=== PATIENT | female | born 1980 | race American Indian/Alaskan Native ===

== ENCOUNTER 2016-06-07 08:25 | Outpatient (CLI) | payer OTHER ==
--- NOTE | 2016-06-07 10:13 | History and Physical Report ---
History of Present Illness Date of examination: 06/07/16 Chief complaint: breast lesion
--- NOTE | 2016-06-07 10:18 | Procedure Note ---
Date of procedure: 06/07/16 Pre-op diagnosis: lt breast lesion Post-op diagnosis: same Procedure: needle loc Anesthesia: local Surgeon: WALTER WELLS Estimated blood loss: none Pathology: none Condition: stable (surgery)
--- NOTE | 2016-06-07 10:24 | Mammography Report ---
Left breast needle localization: Grid mammography used for localization. An asymmetric density identified in the lateral left breast. A lateral approach utilized. The skin was cleansed and percent lidocaine used for local anesthesia. A 10 cm Alejo needle was placed percutaneously with position confirmed with 2 view mammography. A wire was then left in place with removal of the needle and additional confirmation with 2 view mammography. There was no patient complications.
--- NOTE | 2016-06-07 11:40 | Mammography Report ---
Operative specimen mammogram: A specimen from left breast is submitted that includes the localizing wire. It appears that the targeted soft tissue density is included in the specimen. This is documented by the microcalcifications that are present in the lesion.
== END 2016-06-07 08:26 | disposition home or self-care (01) ==
LOC: SPVWC 08:25
PROVIDERS: ATTEND Surgery
DX: N64.89 Other specified disorders of breast (principal); R92.1 Mammographic calcification found on diagnostic imaging of breast
CPT/HCPCS: 76098; 88307